=== PATIENT | male | born 1940 | race African-American/Black ===

== ENCOUNTER 2017-04-30 11:22 | Inpatient (IN) | payer MEDICARE, MEDICAID ==
[~2017-04-30] VITALS: Ht 170.2 cm; Wt 119.7 kg
[~2017-04-30 11:22] MED LIST: AMIO100T4 PO; ATOR20TA65 PO; CARV6.2548 PO; DIGO125T82 PO; DUTA0.5C2 PO; GLIP5TAB12 PO; LEVO50TA8 PO; LISI40TA4 PO; METF500T4 PO; POTA10TA15 PO; TAMS0.4C31 PO
[2017-04-30] MEDS ORDERED: ONDANSETRON HCL 4MG/2ML VIAL IV STA (11:45)
[2017-04-30] MEDS ORDERED: SODIUM CHLORIDE 0.9% 250 ML IV ONE ×2 (11:45→14:45)
[2017-04-30 12:05] LABS: BASOPHILS % 0.5 % (0.0-2.0); EOSINOPHILS % 0.1 % (0.0-5.0); HEMATOCRIT. 35.6 % (42.0-52.0); HEMOGLOBIN. 11.6 g/dL (14.0-18.0); LYMPHOCYTES % 15.8 % (20.0-50.0); MEAN CORPUSCULAR HEMOGLOBIN 27.1 pg (28.0-32.0); MEAN CORPUSCULAR VOLUME 83.1 fL (80.0-94.0); MEAN PLATELET VOLUME 9.1 fl (7.4-10.4); MONOCYTES % 6.2 % (2.0-8.0); NEUTROPHILS % 77.4 % (40.0-76.0); PLATELET 213 x1000/uL (130-400); RED BLOOD CELL COUNT 4.28 mill/uL (4.7-6.1); RED CELL DISTRIBUTION WIDTH 15.5 % (11.6-14.6)
[2017-04-30 12:11] LABS: INR 1.1; PROTHROMBIN TIME 11.3 sec
[2017-04-30 12:21] LABS: CARBON DIOXIDE 23 mEq/L (21-32); CHLORIDE 89 mEq/L (98-107); TROPONIN I 0.04 ng/mL (0.00-0.04)
[2017-04-30 14:32] LABS: CLARITY URINE CLEAR (CLEAR); COLOR URINE YELLOW (YELLOW); GLUCOSE URINE NEGATIVE (NEGATIVE); KETONES URINE NEGATIVE (NEGATIVE); LEUKOCYTE ESTERASE URINE NEGATIVE (NEGATIVE); NITRITE URINE NEGATIVE (NEGATIVE); OCCULT BLOOD URINE TRACE (NEGATIVE); PROTEIN URINE 1+ (NEGATIVE); SPECIFIC GRAVITY URINE 1.009 (1.005-1.030); UROBILINOGEN URINE 0.2 E.U./dL (0.2-1.0)
[2017-04-30] MEDS ORDERED: CLONIDINE 0.1MG TABLET PO PRN (16:46)
[2017-04-30] MEDS: AMIODARONE HCL 200 MG TABLET PO SCH (17:52)
[2017-04-30 19:00] VITALS: BP 163/95
[2017-04-30 20:00] VITALS: BP 143/81
[2017-04-30] MEDS: LISINOPRIL 20MG TABLET PO SCH (20:50)
[2017-04-30] MEDS: CARVEDILOL 6.25 MG TABLET PO SCH (20:53)
[2017-04-30] MEDS ORDERED: IPRATROPIUM/ALBUTEROL 0.5-3(2.5)MG/3ML NEB HHN PRN (22:30)
[2017-04-30] MEDS ORDERED: DEXTROSE 50% WATER 50ML SYRINGE IV PRN (22:30)
[2017-04-30] MEDS ORDERED: ONDANSETRON HCL 4MG/2ML VIAL IV PRN (22:30)
[2017-05-01] VITALS (8 sets, daily range): BP systolic 92–140; BP diastolic 52–78
[2017-05-01] MEDS: LEVOTHYROXINE SODIUM 50MCG TABLET PO SCH (06:21)
[2017-05-01] MEDS: BLOOD SUGAR DIAGNOSTIC STRIP TEST SCH ×4 (06:21→20:27)
[2017-05-01 06:40] LABS: BASOPHILS % 0.4 % (0.0-2.0); EOSINOPHILS % 0.4 % (0.0-5.0); HEMATOCRIT. 33.7 % (42.0-52.0); HEMOGLOBIN. 11.1 g/dL (14.0-18.0); LYMPHOCYTES % 25.4 % (20.0-50.0); MEAN CORPUSCULAR HEMOGLOBIN 27.4 pg (28.0-32.0); MEAN CORPUSCULAR VOLUME 83.1 fL (80.0-94.0); MEAN PLATELET VOLUME 9.6 fl (7.4-10.4); NEUTROPHILS % 59.8 % (40.0-76.0); PLATELET 183 x1000/uL (130-400); RED BLOOD CELL COUNT 4.05 mill/uL (4.7-6.1); RED CELL DISTRIBUTION WIDTH 15.5 % (11.6-14.6)
[2017-05-01] MEDS: INSULIN LISPRO 100 UNITS/ML SUBCUT SCH ×4 (07:12→20:43)
[2017-05-01 07:34] LABS: CARBON DIOXIDE 24 mEq/L (21-32); CHLORIDE 94 mEq/L (98-107); TROPONIN I 0.07 ng/mL (0.00-0.04)
[2017-05-01 07:39] LABS: CREATINE KINASE 174 IU/L (39-308); CREATINE KINASE MB FRACTION 3.5 ng/mL (0.5-3.6); HDL CHOLESTEROL 52 mg/dL (40-59); LDL CHOLESTEROL 38 mg/dL (5-100)
[2017-05-01] MEDS: DUTASTERIDE 0.5MG CAPSULE PO SCH (08:09)
[2017-05-01] MEDS: CARVEDILOL 6.25 MG TABLET PO SCH ×2 (08:09→20:41)
[2017-05-01] MEDS: DIGOXIN 125MCG TABLET PO SCH (08:09)
[2017-05-01] MEDS: LISINOPRIL 20MG TABLET PO SCH ×2 (08:09→20:43)
[2017-05-01] MEDS: AMIODARONE HCL 200 MG TABLET PO SCH ×2 (08:09→16:34)
[2017-05-01] MEDS: ENOXAPARIN 40MG/0.4ML SYR SUBCUT SCH (08:10)
[2017-05-01] MEDS ORDERED: LISINOPRIL 40MG TABLET PO SCH (09:00)
[2017-05-01 17:29] LABS: CLARITY URINE CLOUDY (CLEAR); COLOR URINE YELLOW (YELLOW); GLUCOSE URINE NEGATIVE (NEGATIVE); KETONES URINE NEGATIVE (NEGATIVE); LEUKOCYTE ESTERASE URINE 2+ (NEGATIVE); NITRITE URINE NEGATIVE (NEGATIVE); OCCULT BLOOD URINE 3+ (NEGATIVE); PH URINE 5.5 (4.5-8.0); PROTEIN URINE NEGATIVE (NEGATIVE); SPECIFIC GRAVITY URINE 1.017 (1.005-1.030)
[2017-05-01] MEDS: CEFTRIAXONE 1 G PREMIX 50 ML IV SCH (20:40)
[2017-05-01] MEDS: ATORVASTATIN CALCIUM 20MG TABLET PO SCH (20:45)
[2017-05-01] MEDS: TAMSULOSIN HCL 0.4MG SR CAPSULE PO SCH (20:45)
[2017-05-02] VITALS: BP 102/65
[2017-05-02 04:00] VITALS: BP 110/57
[2017-05-02] MEDS: BLOOD SUGAR DIAGNOSTIC STRIP TEST SCH ×4 (05:46→21:00)
[2017-05-02] MEDS: INSULIN LISPRO 100 UNITS/ML SUBCUT SCH ×4 (05:52→21:00)
[2017-05-02] MEDS: LEVOTHYROXINE SODIUM 50MCG TABLET PO SCH (05:53)
[2017-05-02 07:14] LABS: HEMATOCRIT. 31.9 % (42.0-52.0); HEMOGLOBIN. 10.4 g/dL (14.0-18.0); MEAN CORPUSCULAR HEMOGLOBIN 27.1 pg (28.0-32.0); MEAN CORPUSCULAR VOLUME 83.5 fL (80.0-94.0); MEAN PLATELET VOLUME 9.3 fl (7.4-10.4); PLATELET 159 x1000/uL (130-400); RED BLOOD CELL COUNT 3.82 mill/uL (4.7-6.1); RED CELL DISTRIBUTION WIDTH 15.4 % (11.6-14.6)
[2017-05-02 07:41] LABS: CARBON DIOXIDE 22 mEq/L (21-32); CHLORIDE 94 mEq/L (98-107)
[2017-05-02 08:00] VITALS: BP_SYST 129; BP_SYST 135; BP_SYST 142; BP_DIAS 69; BP_DIAS 72; BP_DIAS 75
[2017-05-02] MEDS: DUTASTERIDE 0.5MG CAPSULE PO SCH (09:56)
[2017-05-02] MEDS: ENOXAPARIN 40MG/0.4ML SYR SUBCUT SCH (09:56)
[2017-05-02] MEDS: AMIODARONE HCL 200 MG TABLET PO SCH (09:56)
[2017-05-02] MEDS: LISINOPRIL 20MG TABLET PO SCH ×2 (09:57→22:06)
[2017-05-02] MEDS: CARVEDILOL 6.25 MG TABLET PO SCH ×2 (09:57→22:07)
[2017-05-02] MEDS: DIGOXIN 125MCG TABLET PO SCH (09:58)
[2017-05-02 12:00] VITALS: BP 101/59
[2017-05-02 13:39] LABS: PLATELET ESTIMATE NORMAL
[2017-05-02 16:00] VITALS: BP 105/56
[2017-05-02] MEDS: ERYTHROMYCIN BASE 0.5% OPHTH OINT 3.5GM BOTHEYE SCH ×2 (18:09→22:08)
[2017-05-02 20:00] VITALS: BP_SYST 129; BP_SYST 141; BP_SYST 145; BP_DIAS 74; BP_DIAS 75; BP_DIAS 77
[2017-05-02] MEDS: ATORVASTATIN CALCIUM 20MG TABLET PO SCH (22:06)
[2017-05-02] MEDS: TAMSULOSIN HCL 0.4MG SR CAPSULE PO SCH (22:07)
[2017-05-02] MEDS: CEFTRIAXONE 1 G PREMIX 50 ML IV SCH (22:08)
[2017-05-03] VITALS: BP 107/56
[2017-05-03 04:00] VITALS: BP 104/58
[2017-05-03] MEDS: ERYTHROMYCIN BASE 0.5% OPHTH OINT 3.5GM BOTHEYE SCH ×3 (06:01→21:33)
[2017-05-03] MEDS: BLOOD SUGAR DIAGNOSTIC STRIP TEST SCH ×4 (06:16→21:54)
[2017-05-03] MEDS: LEVOTHYROXINE SODIUM 50MCG TABLET PO SCH (06:22)
[2017-05-03] MEDS: INSULIN LISPRO 100 UNITS/ML SUBCUT SCH ×4 (06:54→21:53)
[2017-05-03 07:47] LABS: BASOPHILS % 0.5 % (0.0-2.0); EOSINOPHILS % 1.1 % (0.0-5.0); HEMATOCRIT. 31.8 % (42.0-52.0); HEMOGLOBIN. 10.7 g/dL (14.0-18.0); LYMPHOCYTES % 24.5 % (20.0-50.0); MEAN CORPUSCULAR HEMOGLOBIN 28.1 pg (28.0-32.0); MEAN CORPUSCULAR VOLUME 83.4 fL (80.0-94.0); MEAN PLATELET VOLUME 9.8 fl (7.4-10.4); MONOCYTES % 14.6 % (2.0-8.0); NEUTROPHILS % 59.3 % (40.0-76.0); PLATELET 162 x1000/uL (130-400); RED BLOOD CELL COUNT 3.81 mill/uL (4.7-6.1); RED CELL DISTRIBUTION WIDTH 15.5 % (11.6-14.6)
[2017-05-03 08:00] VITALS: BP_SYST 120; BP_SYST 125; BP_DIAS 62; BP_DIAS 74
[2017-05-03] MEDS: LISINOPRIL 20MG TABLET PO SCH ×2 (09:00→21:33)
[2017-05-03] MEDS: DUTASTERIDE 0.5MG CAPSULE PO SCH (09:02)
[2017-05-03] MEDS: AMIODARONE HCL 200 MG TABLET PO SCH (09:03)
[2017-05-03] MEDS: ENOXAPARIN 40MG/0.4ML SYR SUBCUT SCH (09:03)
[2017-05-03] MEDS: DIGOXIN 125MCG TABLET PO SCH (09:03)
[2017-05-03] MEDS: CARVEDILOL 6.25 MG TABLET PO SCH ×2 (09:03→21:32)
[2017-05-03 12:00] VITALS: BP_SYST 119; BP_SYST 148; BP_DIAS 67; BP_DIAS 82
[2017-05-03] MEDS: DOCUSATE SODIUM 100MG CAPSULE PO PRN (14:34)
[2017-05-03 16:00] VITALS: BP 148/82
[2017-05-03 20:00] VITALS: BP 116/70
[2017-05-03] MEDS: TAMSULOSIN HCL 0.4MG SR CAPSULE PO SCH (21:33)
[2017-05-03] MEDS: ATORVASTATIN CALCIUM 20MG TABLET PO SCH (21:33)
[2017-05-03] MEDS: CEFTRIAXONE 1 G PREMIX 50 ML IV SCH (21:33)
[2017-05-04] VITALS: BP 105/55
[2017-05-04 04:00] VITALS: BP_SYST 101; BP_SYST 125; BP_DIAS 57; BP_DIAS 68
[2017-05-04] MEDS: LEVOTHYROXINE SODIUM 50MCG TABLET PO SCH (06:27)
[2017-05-04] MEDS: ERYTHROMYCIN BASE 0.5% OPHTH OINT 3.5GM BOTHEYE SCH ×3 (06:27→21:56)
[2017-05-04] MEDS: INSULIN LISPRO 100 UNITS/ML SUBCUT SCH ×4 (06:28→21:00)
[2017-05-04] MEDS: BLOOD SUGAR DIAGNOSTIC STRIP TEST SCH ×4 (06:29→21:55)
[2017-05-04 08:30] VITALS: BP 131/67
[2017-05-04] MEDS: DUTASTERIDE 0.5MG CAPSULE PO SCH (08:53)
[2017-05-04] MEDS: ENOXAPARIN 40MG/0.4ML SYR SUBCUT SCH (08:54)
[2017-05-04] MEDS: LISINOPRIL 20MG TABLET PO SCH ×2 (08:54→21:30)
[2017-05-04] MEDS: DIGOXIN 125MCG TABLET PO SCH (08:54)
[2017-05-04] MEDS: AMIODARONE HCL 200 MG TABLET PO SCH (08:54)
[2017-05-04] MEDS: CARVEDILOL 6.25 MG TABLET PO SCH ×2 (08:55→21:30)
[2017-05-04 10:48] LABS: BASOPHILS % 0.8 % (0.0-2.0); EOSINOPHILS % 1.6 % (0.0-5.0); HEMATOCRIT. 33.5 % (42.0-52.0); HEMOGLOBIN. 10.5 g/dL (14.0-18.0); MEAN CORPUSCULAR HEMOGLOBIN 26.7 pg (28.0-32.0); MEAN CORPUSCULAR VOLUME 84.9 fL (80.0-94.0); MONOCYTES % 13.4 % (2.0-8.0); NEUTROPHILS % 63.2 % (40.0-76.0); PLATELET 168 x1000/uL (130-400); RED BLOOD CELL COUNT 3.94 mill/uL (4.7-6.1); RED CELL DISTRIBUTION WIDTH 16.1 % (11.6-14.6)
[2017-05-04 12:00] VITALS: BP 127/72
[2017-05-04 16:54] VITALS: BP 129/64
[2017-05-04 20:00] VITALS: BP_SYST 117; BP_SYST 122; BP_DIAS 64; BP_DIAS 68
[2017-05-04] MEDS: ATORVASTATIN CALCIUM 20MG TABLET PO SCH (21:30)
[2017-05-04] MEDS: TAMSULOSIN HCL 0.4MG SR CAPSULE PO SCH (21:30)
[2017-05-04] MEDS: CEFTRIAXONE 1 G PREMIX 50 ML IV SCH (21:33)
[2017-05-05 00:30] VITALS: BP 101/51
[2017-05-05 04:00] VITALS: BP 109/49
[2017-05-05] MEDS: BLOOD SUGAR DIAGNOSTIC STRIP TEST SCH ×4 (05:48→20:10)
[2017-05-05] MEDS: INSULIN LISPRO 100 UNITS/ML SUBCUT SCH ×4 (05:49→21:48)
[2017-05-05 06:36] LABS: BASOPHILS % 0.9 % (0.0-2.0); EOSINOPHILS % 1.9 % (0.0-5.0); HEMATOCRIT. 33.5 % (42.0-52.0); HEMOGLOBIN. 10.8 g/dL (14.0-18.0); LYMPHOCYTES % 28.3 % (20.0-50.0); MEAN CORPUSCULAR HEMOGLOBIN 27.2 pg (28.0-32.0); MEAN CORPUSCULAR VOLUME 84.5 fL (80.0-94.0); MEAN PLATELET VOLUME 10.1 fl (7.4-10.4); MONOCYTES % 12.9 % (2.0-8.0); PLATELET 186 x1000/uL (130-400); RED BLOOD CELL COUNT 3.97 mill/uL (4.7-6.1); RED CELL DISTRIBUTION WIDTH 16.2 % (11.6-14.6)
[2017-05-05] MEDS: LEVOTHYROXINE SODIUM 50MCG TABLET PO SCH (06:37)
[2017-05-05] MEDS: ERYTHROMYCIN BASE 0.5% OPHTH OINT 3.5GM BOTHEYE SCH ×3 (06:40→21:47)
[2017-05-05 08:00] VITALS: BP 115/72
[2017-05-05] MEDS: AMIODARONE HCL 200 MG TABLET PO SCH (08:08)
[2017-05-05] MEDS: DIGOXIN 125MCG TABLET PO SCH (08:08)
[2017-05-05] MEDS: DUTASTERIDE 0.5MG CAPSULE PO SCH (08:08)
[2017-05-05] MEDS: ENOXAPARIN 40MG/0.4ML SYR SUBCUT SCH (08:09)
[2017-05-05] MEDS: CARVEDILOL 6.25 MG TABLET PO SCH ×2 (08:09→20:02)
[2017-05-05] MEDS: LISINOPRIL 20MG TABLET PO SCH ×2 (08:10→20:03)
[2017-05-05 16:12] VITALS: BP 114/65
[2017-05-05 20:00] VITALS: BP 122/62
[2017-05-05] MEDS: TAMSULOSIN HCL 0.4MG SR CAPSULE PO SCH (20:02)
[2017-05-05] MEDS: ATORVASTATIN CALCIUM 20MG TABLET PO SCH (20:03)
[2017-05-05] MEDS: CEFTRIAXONE 1 G PREMIX 50 ML IV SCH (20:04)
[2017-05-05 20:13] VITALS: BP 120/60
[2017-05-06] VITALS: BP 128/77
[2017-05-06 04:00] VITALS: BP 132/70
[2017-05-06 06:32] LABS: BASOPHILS % 0.9 % (0.0-2.0); EOSINOPHILS % 2.4 % (0.0-5.0); HEMOGLOBIN. 10.9 g/dL (14.0-18.0); LYMPHOCYTES % 27.5 % (20.0-50.0); MEAN CORPUSCULAR HEMOGLOBIN 27.4 pg (28.0-32.0); MEAN CORPUSCULAR VOLUME 85.1 fL (80.0-94.0); MEAN PLATELET VOLUME 9.6 fl (7.4-10.4); MONOCYTES % 14.6 % (2.0-8.0); NEUTROPHILS % 54.6 % (40.0-76.0); PLATELET 175 x1000/uL (130-400); RED BLOOD CELL COUNT 3.99 mill/uL (4.7-6.1); RED CELL DISTRIBUTION WIDTH 15.9 % (11.6-14.6)
[2017-05-06] MEDS: LEVOTHYROXINE SODIUM 50MCG TABLET PO SCH (06:32)
[2017-05-06] MEDS: ERYTHROMYCIN BASE 0.5% OPHTH OINT 3.5GM BOTHEYE SCH ×2 (06:33→15:01)
[2017-05-06] MEDS: BLOOD SUGAR DIAGNOSTIC STRIP TEST SCH ×2 (06:33→12:44)
[2017-05-06] MEDS: INSULIN LISPRO 100 UNITS/ML SUBCUT SCH ×2 (06:43→12:55)
[2017-05-06 07:42] VITALS: BP 139/93
[2017-05-06] MEDS: DOCUSATE SODIUM 100MG CAPSULE PO PRN (08:45)
[2017-05-06] MEDS: DUTASTERIDE 0.5MG CAPSULE PO SCH (08:45)
[2017-05-06] MEDS: CARVEDILOL 6.25 MG TABLET PO SCH (08:45)
[2017-05-06] MEDS: AMIODARONE HCL 200 MG TABLET PO SCH (08:46)
[2017-05-06] MEDS: LISINOPRIL 20MG TABLET PO SCH (08:46)
[2017-05-06] MEDS: DIGOXIN 125MCG TABLET PO SCH (08:46)
[2017-05-06] MEDS: ENOXAPARIN 40MG/0.4ML SYR SUBCUT SCH (08:47)
[2017-05-06 12:00] VITALS: BP 124/69
[2017-05-06 14:21] VITALS: BP 124/69
== END 2017-05-06 17:10 | disposition home or self-care (01) | DRG 73 ==
LOC: ER 12:34 → 8WST 14:55 → ENRESERV 17:43
PROVIDERS: ADMIT Internal Medicine; ATTEND Internal Medicine
DX: G90.8 Other disorders of autonomic nervous system (principal); N17.0 Acute kidney failure with tubular necrosis; E87.1 Hypo-osmolality and hyponatremia; I13.0 Hypertensive heart and chronic kidney disease with heart failure and stage 1 through stage 4 chronic kidney disease, or unspecified chronic kidney disease; I48.92 Unspecified atrial flutter; N39.0 Urinary tract infection, site not specified; I42.9 Cardiomyopathy, unspecified; R55 Syncope and collapse; M19.90 Unspecified osteoarthritis, unspecified site; K80.20 Calculus of gallbladder without cholecystitis without obstruction; D73.89 Other diseases of spleen; E11.22 Type 2 diabetes mellitus with diabetic chronic kidney disease; E78.00 Pure hypercholesterolemia, unspecified; E86.0 Dehydration; R33.8 Other retention of urine; N40.1 Benign prostatic hyperplasia with lower urinary tract symptoms; F03.90 Unspecified dementia, unspecified severity, without behavioral disturbance, psychotic disturbance, mood disturbance, and anxiety; H10.9 Unspecified conjunctivitis; I25.10 Atherosclerotic heart disease of native coronary artery without angina pectoris; I50.9 Heart failure, unspecified; J45.909 Unspecified asthma, uncomplicated; K44.9 Diaphragmatic hernia without obstruction or gangrene; N18.9 Chronic kidney disease, unspecified; W19.XXXA Unspecified fall, initial encounter; Z79.84 Long term (current) use of oral hypoglycemic drugs; Z79.899 Other long term (current) drug therapy; Z85.46 Personal history of malignant neoplasm of prostate; Z86.79 Personal history of other diseases of the circulatory system; Z90.79 Acquired absence of other genital organ(s); Z95.0 Presence of cardiac pacemaker; Y93.89 Activity, other specified; Y92.009 Unspecified place in unspecified non-institutional (private) residence as the place of occurrence of the external cause
CPT/HCPCS: 36415; 51702; 70450; 71010; 74176; 76770; 80048; 80053; 80061; 80162; 81001; 82550; 82553; 82962; 83036; 83605; 83690; 83735; 83880; 84153; 84300; 84443; 84484; 85025; 85379; 85610; 87040; 87086; 93005; 93306; 93880; 96361; 96374; 97116; 97162; 99285; J0696; J1650; J1815; J2405; J7040; J7050; A4315

== ENCOUNTER 2017-05-13 17:23 | Emergency (ER) | payer MEDICARE, MEDICAID ==
[~2017-05-13] VITALS: Ht 172.7 cm; Wt 107.0 kg
[~2017-05-13 17:23] MED LIST changes: -METF500T4 PO
[2017-05-13 19:48] VITALS: BP 146/87
== END 2017-05-13 19:30 | disposition home or self-care (01) ==
LOC: ER 19:15
DX: R33.9 Retention of urine, unspecified (principal); N40.1 Benign prostatic hyperplasia with lower urinary tract symptoms; I10 Essential (primary) hypertension; E11.9 Type 2 diabetes mellitus without complications
CPT/HCPCS: 51702; 99284; A4315